=== PATIENT | male | born 1970 ===

== ENCOUNTER → 2024-09-08 | Day surgery (SDC) | payer MEDICARE ==
[2024-09-07 09:58] VITALS: BMI 19.2
[~2024-09-08] MED LIST: GLYCOPYRROLATE 0.2 MG/ML 2 ML VIAL ONE; HYDROcodone/APAP 5-325MG 1 EACH TAB PO PRN; HYDROmorphone 0.5 MG/0.5 ML SYRINGE IVP PRN; LIDOCAINE 1% (10MG/ML) FOR IV START INTRADERMA PRN; LIDOCAINE 1% INJ 10MG/ML (20 ML MDV) ONE; MIDAZOLAM 2 MG/2 ML VIAL ONE; NALOXONE 0.4 MG/ML 1 ML VIAL IV PRN; PHENYLEPHRINE-0.9% NACL SYG 1,000 MCG/10 ML SYRINGE ONE; PROPOFOL 10 MG/ML 20 ML VIAL IV ONE; Pre Op ABX Message 1 EACH MISC MISCELLANE ONE; ePHEDrine 50 MG/ML 1 ML VIAL ONE; fentaNYL (PF) 50 MCG/ML 2 ML AMP ONE
[2024-09-08] MEDS: IV FLUID CONTINUATION 1,000 ML IV ONE ×2 (09:46→11:52)
[2024-09-08] MEDS: LACTATED RINGERS 1,000 ML IV SCH (10:07)
[2024-09-08] MEDS: HEPARIN SODIUM,PORCINE 5,000 UNIT/ML 1 ML VIAL SQ PRN (10:11)
[2024-09-08] MEDS: ONDANSETRON 4 MG/2 ML VIAL IVP ONE (10:11)
[2024-09-08] MEDS: ACETAMINOPHEN TAB 500 MG TAB PO PRN (10:11)
[2024-09-08] MEDS: DEXAMETHASONE SOD PHOSPHATE 4 MG/ML 1 ML VIAL IV ONE (10:11)
--- NOTE | 2024-09-08 10:39 | P.GSHP ---
History of Present Illness H&P Date: 09/08/24 Chief Complaint: Lung cancer 53-year-old male here for Port-A-Cath placement. Patient with recent diagnosis of stage IV lung cancer. Starting chemotherapy. Has not had a port previously. Past Medical History Past Medical History: Cancer, COPD, Thyroid Disorder History of Any Multi-Drug Resistant Organisms: None Reported Past Surgical History: Hernia Repair Additional Past Surgical History / Comment(s): Biopsy of Lung 2020 Past Anesthesia/Blood Transfusion Reactions: No Reported Reaction Smoking Status: Current every day smoker - Past Family History Mother Family Medical History: Coronary Artery Disease (CAD) Additional Family Medical History / Comment(s): Triple bipass Medications and Allergies Home Medications Medication Instructions Recorded Confirmed Type Escitalopram [Lexapro] 20 mg PO DAILY 09/07/24 09/08/24 History Fluticasone/Umeclidin/Vilanter 1 puff IN DAILY 09/07/24 09/08/24 History [Trelegy Ellipta 200-62.5-25] Levothyroxine Sodium 125 mcg PO DAILY 09/07/24 09/08/24 History Allergies Allergy/AdvReac Type Severity Reaction Status Date / Time bee venom protein (honey bee) AdvReac Swelling Verified 09/08/24 10:16 Surgical - Exam Vital Signs Temp Pulse Resp BP Pulse Ox 97.9 F 49 L 16 123/77 98 09/08/24 09:51 09/08/24 09:51 09/08/24 09:51 09/08/24 09:51 09/08/24 09:51 Physical exam: General: Well-developed, very thin appearing male HEENT: Normocephalic, sclerae nonicteric Abdomen: Nontender, nondistended Extremities: No edema Neuro: Alert and oriented Assessment and Plan (1) Lung cancer Narrative/Plan: Will proceed with Port-A-Cath placement at this time. Risks of bleeding, infection, DVT, pneumothorax, catheter malfunction, anesthesia related complications were discussed. The patient understands and wishes to proceed. Current Visit: Yes Status: Acute Code(s): C34.90 - MALIGNANT NEOPLASM OF UNSP PART OF UNSP BRONCHUS OR LUNG SNOMED Code(s): 858765011
[2024-09-08] MEDS: SODIUM CHLORIDE 0.9% 100 ML with ceFAZolin 2,000 MG IV ONE (10:59)
[2024-09-08] MEDS: HEPARIN SODIUM,PORCINE 100 UNIT/ML 5 ML VIAL IV ONE ×2 (11:27)
[2024-09-08] MEDS: BUPIVACAINE (PF) 0.25% 30 ML VIAL SQ ONE ×2 (11:27)
[2024-09-08] MEDS: LACTATED RINGERS 1,000 ML IV ONE (11:36)
[2024-09-08 11:59] VITALS: TEMP 97
--- NOTE | 2024-09-08 12:01 | P.OP ---
Date of Procedure: 09/08/24 Procedure(s) Performed: PREOPERATIVE DIAGNOSIS: Lung cancer POSTOPERATIVE DIAGNOSIS: Same PROCEDURE: Port-A-Cath placement with fluoroscopic and ultrasound guidance SURGEON: Jade EBL: 2 cc ANESTHESIA: General COMPLICATIONS: None OPERATIVE PROCEDURE: Patient was brought and placed on the operative table in the supine position. The patient was placed under general anesthesia at that time. The chest and neck were prepped and draped in usual sterile fashion. The ultrasound probe was used to identify the location of the right internal jugular vein. The skin was localized with lidocaine. The Seldinger needle was advanced into the IJ under ultrasound guidance. The wire was advanced through the needle under fluoroscopic guidance into the superior vena cava. A port pocket was created in the right infraclavicular location. The catheter was tunneled from the wire entrance site to the port pocket. The port was then connected to the catheter. The dilator introducer was threaded over the guidewire. The guidewire and dilator were then removed. The catheter was advanced through the introducer and introducer was then removed. The tip was seen to be in the right atrial junction via fluoroscopy. A picture of the radiograph showing the tip of the catheter was taken. Port was flushed with both saline and a Hep-Lock solution. There was good flow both in and out of the port. The port was sutured in underlying tissues using 3-0 silk sutures. The subcutaneous tissues were reapproximated using 3-0 Vicryl sutures and the skin at both locations using 4-0 Monocryl sutures. Skin glue and sterile dressings then applied. DISPOSITION: Stable to recovery room
--- NOTE | 2024-09-08 12:40 | XR ---
EXAMINATION TYPE: XR chest 1V confirm line [facility] DATE OF EXAM: 09/08/2024 COMPARISON: None CLINICAL INDICATION: Male, 53 years old with history of Check line; TECHNIQUE: Single frontal view of the chest is obtained. FINDINGS: Right anterior chest wall injection port with catheter tip at the mid SVC level. Heart nor mal size. Aorta and pulmonary vasculature are within normal limits. Hyperinflation. Suspicious spicul ated appearing right midlung nodule measuring 1.6 cm. No consolidation or pleural effusion. No apprec iable pneumothorax. IMPRESSION: 1. Suspicious-appearing 1.2 cm spiculated nodule at the right midlung. CT to exclude early lung cance r. 2. Right anterior chest wall injection port with catheter tip at the mid SVC. 3. Background COPD. No acute process seen. [facility], , 09/08/2024 12:38 PM
[2024-09-08 14:00] VITALS: BP 121/73; PULSE 77; RESP 16
--- NOTE | 2024-09-08 14:58 | FL ---
EXAMINATION TYPE: FL guided central line placemt DATE OF EXAM: 09/08/2024 FLUOROSCOPY PORT-A-CATH FL TIME 3.6 SECONDS, DAP [id number], 1 IMAGE SENT INTO PACS, DR FOSTER [facility], Workstation: [facility], 09/08/2024 2:56 PM
== END ==
LOC: OR 09:10
PROVIDERS: ATTEND Surgery
DX: C34.90 Malignant neoplasm of unspecified part of unspecified bronchus or lung (principal); J44.9 Chronic obstructive pulmonary disease, unspecified; F17.210 Nicotine dependence, cigarettes, uncomplicated; Z98.890 Other specified postprocedural states; Z82.49 Family history of ischemic heart disease and other diseases of the circulatory system; Z79.890 Hormone replacement therapy; Z91.030 Bee allergy status; Z79.899 Other long term (current) drug therapy
CPT/HCPCS: 77001; 36561; C1788; J2250; J1644; J1642; J1100; J2405; J0690; J2003; J3010; J2704; J2371; J0665; J1596